=== PATIENT | female | born 1980 | race African-American/Black ===

== ENCOUNTER 2016-09-02 15:32 | Emergency (ER) | payer OTHER ==
[2016-09-02 15:39] VITALS: BP 126/66; PULSE 92; TEMP 98.2; BMI 30.4
--- NOTE | 2016-09-02 16:03 | PDOC ---
History of Present Illness - General Chief Complaint: Toothache Stated Complaint: SWOLLEN GUM Time Seen by Provider: 09/02/16 15:52 History Source: Patient Exam Limitations: No Limitations - History of Present Illness Initial Comments: 09/02/16 16:02 36 yr female with abscess to right lower gum started yesterday. Past History - Past Medical History Allergies/Adverse Reactions: Allergies Allergy/AdvReac Type Severity Reaction Status Date / Time iodine Allergy Verified 09/02/16 15:39 Home Medications: Ambulatory Orders Amoxicillin - [Amoxicillin 500mg Capsule -] 500 mg PO TID #21 capsule 09/02/16 Ibuprofen 800 mg PO TID PRN #30 tablet 09/02/16 Oxycodone HCl/Acetaminophen [Percocet 5-325 mg Tablet] 1 tab PO Q6H PRN #8 tablet MDD 4 tabs 09/02/16 Other medical history: PT DENIES MEDICAL HX - Psycho/Social/Smoking Cessation Hx Suicidal Ideation: No Smoking History: Current every day smoker Number of Cigarettes Smoked Daily: 3 Information on smoking cessation initiated: No Hx Alcohol Use: No Drug/Substance Use Hx: Yes Substance Use Type: Marijuana *Physical Exam - Vital Signs Last Vital Signs Temp Pulse Resp BP Pulse Ox 98.2 F 92 H 16 126/66 98 09/02/16 15:35 09/02/16 15:35 09/02/16 15:35 09/02/16 15:35 09/02/16 15:35 - Physical Exam General Appearance: Yes: Nourished, Appropriately Dressed HEENT: positive: EOMI, DEEPAK, TMs Normal, Pharynx Normal, Other (abscess to gum right lower gum line) Respiratory/Chest: positive: Lungs Clear, Normal Breath Sounds Cardiovascular: positive: Regular Rhythm, Regular Rate Procedures - Incision and Drainage I&D Site: Left: Other (dental /gum ) Betadine cleansed: No (allergy to betadine cleaned with peroxide) Complications: none Dressing: No Progress: 09/02/16 16:18 #25 gauge needle to drain abscess, copious amounts of pus returned 09/02/16 16:19 Medical Decision Making - Medical Decision Making 09/02/16 16:11 cc: gum abscess drained given percocet pt has apt tomorrow for a dental cleaning *DC/Admit/Observation/Transfer Diagnosis at time of Disposition: Dental abscess - Discharge Dispostion Disposition: HOME Condition at time of disposition: Good - Prescriptions Prescriptions: Amoxicillin - [Amoxicillin 500mg Capsule -] 500 mg PO TID #21 capsule Ibuprofen 800 mg PO TID PRN #30 tablet PRN Reason: Pain Oxycodone HCl/Acetaminophen [Percocet 5-325 mg Tablet] 1 tab PO Q6H PRN #8 tablet MDD 4 tabs PRN Reason: Severe Pain - Referrals Referrals: Sakina Rodriguez [Primary Care Provider] - - Patient Instructions Printed Discharge Instructions: DI for Tooth Abscess Additional Instructions: rinse with warm salt water 5-6 times a day warm to hot moist cloth on the abscess frequently follow with your dentist tomorrow as planned
[2016-09-02] MEDS ORDERED: IBUPROFEN 600 MG TABLET (FP) PO ONE ×2 (16:10→16:15)
== END 2016-09-02 16:23 | disposition home or self-care (01) ==
LOC: JERFT 15:32
PROC: 0C96XZZ Drainage of Lower Gingiva, External Approach (ICD-10-PCS; principal; 2016-09-02)
DX: K04.7 Periapical abscess without sinus (principal); F17.210 Nicotine dependence, cigarettes, uncomplicated
CPT/HCPCS: 41800; 99281-25